=== PATIENT | male | born 1990 | race Caucasian/White ===

== ENCOUNTER 2018-12-12 16:15 | Inpatient (IN) | payer MEDICAID ==
[~2018-12-12] VITALS: Ht 180.3 cm; Wt 64.7 kg
--- NOTE | 2018-12-12 16:50 | NUR ---
Poison control contacted at [id number]. Informed of time/product /amt of intake by pt. Recommendation: regular "tox workup" including tylenol & electrolytes. Observe 6 hr for GI s/s. Case #[id number].
--- NOTE | 2018-12-12 16:55 | NUR ---
ACTIVE INGREDIENT IN THE BUG SPRAY IS DELTAMETHRIN 0.03%. MADE AWARE AND BUSINESS [facility] IN CONTACT WITH POISON CONTROL.
[2018-12-12 17:07] LABS: BASOPHILS # (AUTO) 0.03 x10^3/uL (0-0.1); BASOPHILS % (AUTO) 0 % (0-1); EOSINOPHILS # (AUTO) 0.08 x10^3/uL (0-0.4); EOSINOPHILS % (AUTO) 1 % (1-7); LYMPHOCYTES # (AUTO) 1.22 x10^3/uL (1-3.4); LYMPHOCYTES % (AUTO) 16 % (22-44); MD NO; MEAN CORPUSCULAR HEMOGLOBIN 30.8 pg (27.5-34.5); MEAN CORPUSCULAR HGB CONC 33.5 g/dL (33.2-36.2); MEAN CORPUSCULAR VOLUME 91.9 fL (81-97); MEAN PLATELET VOLUME 7.3 fL (7.4-10.4); MONOCYTES % (AUTO) 7 % (2-9); NEUTROPHILS # (AUTO) 5.81 x10^3/uL (1.8-6.8); NEUTROPHILS % (AUTO) 76 % (42-75); PLATELET COUNT 280 x10^3/uL (130-400); RED BLOOD COUNT 5.35 x10^6/uL (4.38-5.82); RED CELL DISTRIBUTION WIDTH 13.1 % (9.4-14.8)
[2018-12-12 17:16] LABS: ALANINE AMINOTRANSFERASE 25 U/L (12-78); ALBUMIN 3.6 g/dL (3.4-5.0); ANION GAP 5 mmol/L (5-15); CHLORIDE 109 mmol/L (98-107); CREATININE 1.32 mg/dL (0.7-1.3)
[2018-12-12 17:18] LABS: ALKALINE PHOSPHATASE 58 U/L (45-117); BILIRUBIN,TOTAL 0.3 mg/dL (0.2-1.0); TOTAL PROTEIN 7.3 g/dL (6.4-8.2)
[2018-12-12 17:19] LABS: SALICYLATE LEVEL < 1.7 mg/dL (2.8-20.0)
[2018-12-12 17:20] LABS: ACETAMINOPHEN < 2 mcg/mL (10-30)
[2018-12-12 17:25] LABS: AMPHETAMINE SCREEN, URINE Positive (Negative); BARBITURATE SCREEN, URINE Negative (Negative); BENZODIAZEPINE SCREEN, URINE Negative (Negative); CANNABINOID SCREEN, URINE Positive (Negative); COCAINE SCREEN, URINE Positive (Negative); METHADONE SCREEN, URINE Negative (Negative); OPIATE SCREEN, URINE Negative (Negative)
[2018-12-12 19:28] VITALS: BP 134/82
[2018-12-13 05:55] LABS: MEAN CORPUSCULAR HEMOGLOBIN 31.6 pg (27.5-34.5); MEAN CORPUSCULAR HGB CONC 34.1 g/dL (33.2-36.2); MEAN CORPUSCULAR VOLUME 92.8 fL (81-97); MEAN PLATELET VOLUME 7.4 fL (7.4-10.4); PLATELET COUNT 284 x10^3/uL (130-400); RED BLOOD COUNT 5.17 x10^6/uL (4.38-5.82); RED CELL DISTRIBUTION WIDTH 13.3 % (9.4-14.8)
[2018-12-13 05:57] LABS: ALANINE AMINOTRANSFERASE 23 U/L (12-78); ALBUMIN 3.2 g/dL (3.4-5.0); ANION GAP 5 mmol/L (5-15); BILIRUBIN, DIRECT 0.2 mg/dL (0.1-0.2); CALCIUM 8.6 mg/dL (8.5-10.1); CHLORIDE 111 mmol/L (98-107); CREATININE 1.18 mg/dL (0.7-1.3)
[2018-12-13 05:59] LABS: HEMOGLOBIN A1C 5.2 % (4.2-6.3)
[2018-12-13 06:00] LABS: ALKALINE PHOSPHATASE 47 U/L (45-117); BILIRUBIN,INDIRECT 0.8 mg/dL (0.0-2.0); TOTAL PROTEIN 6.5 g/dL (6.4-8.2)
[2018-12-13 06:42] LABS: BASOPHILS # (AUTO) 0.05 x10^3/uL (0-0.1); BASOPHILS % (AUTO) 1 % (0-1); EOSINOPHILS # (AUTO) 0.28 x10^3/uL (0-0.4); EOSINOPHILS % (AUTO) 5 % (1-7); LYMPHOCYTES # (AUTO) 2.71 x10^3/uL (1-3.4); LYMPHOCYTES % (AUTO) 47 % (22-44); MD SCAN; MONOCYTES # (AUTO) 0.65 x10^3/uL (0.2-0.8); MONOCYTES % (AUTO) 11 % (2-9); NEUTROPHILS # (AUTO) 2.07 x10^3/uL (1.8-6.8); NEUTROPHILS % (AUTO) 36 % (42-75)
[2018-12-13 07:20] VITALS: BP 114/66
[2018-12-13] MEDS ORDERED: NICOTINE 21 MG/24 HR PATCH.TD24 TD SCH (09:00)
[2018-12-13 09:10] VITALS: BP 128/76
== END 2018-12-13 09:40 | disposition left against medical advice (07) | DRG 918 ==
LOC: ED 16:46 → EDIP 17:46 → 3NE 19:03
PROVIDERS: ADMIT Hospitalist; ATTEND Hospitalist
DX: T60.91XA Toxic effect of unspecified pesticide, accidental (unintentional), initial encounter (principal); F33.1 Major depressive disorder, recurrent, moderate; R45.851 Suicidal ideations; F12.90 Cannabis use, unspecified, uncomplicated; F14.90 Cocaine use, unspecified, uncomplicated; F17.210 Nicotine dependence, cigarettes, uncomplicated; Y92.89 Other specified places as the place of occurrence of the external cause; Z91.5 Personal history of self-harm; Z53.21 Procedure and treatment not carried out due to patient leaving prior to being seen by health care provider
CPT/HCPCS: 36415; 36600; 71045; 80048; 80053; 80076; 80307; 80329; 82803; 83036; 83605; 85025; 93005; 99285; G0378; G0480

== ENCOUNTER 2020-01-15 21:12 | Emergency (ER) | payer MEDICAID ==
--- NOTE | 2020-01-15 21:42 | NUR ---
PRIOR TO TRIAGE, THIS RN WAS TOLD BY SHARED SERVICES AND OUTSOURCING MANAGERSHARRI HODGE ( SCREENER ) PATIENT WAS AGGRESSIVE AND NOT COMPLIANT TO HIM. PATIENT CHECK IN AND STARTED YELLING IN THE LOBBY, SECURITY ARRIVED AND PLACED PATIENT IN WHEEL CHAIR. AT THAT POINT WE CALLED THE PATIENT IN TRIAGE, SOMEWHAT COOPERATIVE,STILL BREATHING HEAVILY.BUT MY TECH TREVA ASKED PATIENT TO STEP ON WEIGHING SCALE AND HE DID. HE SAT DOWN TO TAKE VITAL SIGNS AND I STARTED TO ASK HIM QUESTION , WHAT CAN I HELP? WHAT IS GOING ON? PATIENT OUT OF NOWHERE START YELLING TO THIS RN AND STATED " I AM NOT GOING TO ANSWER YOUR QUESTIONS, WHY ARE YOU PEOPLE ASKING ME THE SAME QUESTIONS?" " I NEED A DOCTOR AND YOU SUPPOSED TO DIAGNOSE ME, THAT'S IT". SECURITY ARRIVED AND PATIENT BECAME MORE AGGRESSIVE, REMOVED HIS SHIRT PULLED THE CABLE MONITORS AND ACTING THAT HE IS GOING TO HIT SOMEONE. PATIENT TRIED /ACTED THAT HE IS GOING TO HIT THE SECURITY. THAT IS THE TIME HE WAS SUBDUED BY SECURITY AND HAND CUFFS WAS PLACED. SOLE BUFFER SPOKE TO PATIENT, STILL NOT COOPERATIVE. UNDER CUTTER AND ED MD SPOKE TO PATIENT BUT PATIENT STILL NOT ANSWERING QUESTIONS PERTAINS TO WHY HE IS HERE. [employer] ARRIVED AND PATIENT TAKEN TO ASSISTED.
== END 2020-01-15 22:14 | disposition home or self-care (01) ==
LOC: ED 22:08
DX: F15.10 Other stimulant abuse, uncomplicated (principal); F14.10 Cocaine abuse, uncomplicated; R45.1 Restlessness and agitation; F32.9 Major depressive disorder, single episode, unspecified
CPT/HCPCS: 99283